=== PATIENT | male | born 1995 | race Caucasian/White ===

== ENCOUNTER → 2023-09-26 | Outpatient (REF) | LOC: M PLAIMG 08:14 | PROVIDERS: ATTEND Family Medicine | DX: J32.9 Chronic sinusitis, unspecified (principal); M25.511 Pain in right shoulder; M25.512 Pain in left shoulder; M25.551 Pain in right hip; M25.552 Pain in left hip; M25.561 Pain in right knee; M25.571 Pain in right ankle and joints of right foot; M25.572 Pain in left ankle and joints of left foot; M54.12 Radiculopathy, cervical region ==